=== PATIENT | male | born 1945 | race Caucasian/White ===

== ENCOUNTER 2018-01-11 06:24 | Inpatient (IN) | payer OTHER ==
[2018-01-06 14:57] VITALS: BMI 25.8
[2018-01-11] MEDS ORDERED: TAMSULOSIN HCL 0.4 MG CAP.ER.24H (FP) ONE (07:06)
[2018-01-11] MEDS ORDERED: DEXAMETHASONE SOD PHOSPHATE/PF 10 MG/ML SDV ONE (07:42)
[2018-01-11] MEDS ORDERED: BUPIVACAINE HCL/PF (5 MG/ML) 30 ML VIAL IJ ONE (07:42)
--- NOTE | 2018-01-11 08:25 | HP ---
DATE OF ADMISSION: 01/11/2018 BRIEF HISTORY: This is a 72-year-old gentleman I met on November 29 of this year. [facility] this H & P is outside of 30 days. Therefore patient is reevaluated and redictated. Please refer to my original H & P for details. This is a 72-year-old gentleman with a chronically incarcerated ventral hernia. It is causing discomfort. He wished to have this repaired. PAST MEDICAL HISTORY: Peptic ulcer disease, pulmonary problems, heart disease, hypertension, hypercholesterolemia, history of stroke and diabetes. PAST SURGICAL HISTORY: No abdominal surgeries. ALLERGIES: TETRACYCLINE. MEDICATIONS: Combivent, Advair, Toprolol, Zantac, Diovan, Januvia, Prevacid, Antara, Flomax, lorazepam. SOCIAL HISTORY: Does not smoke. Drinks socially. PHYSICAL EXAMINATION:Abdomen: Soft, nontender, nondistended. Midline diastasis. Chronically incarcerated complex ventral hernia. IMPRESSION: Chronically incarcerated complex ventral hernia. PLAN: Patient is having discomfort, symptomatic. Therefore it is being repaired. Plan for a retrorectus repair, possible component separation as needed. DAVID SONG M.D. [id number] cc: Devonte Kelly MD MTDD
[2018-01-11] MEDS ORDERED: MIDAZOLAM HCL 2 MG/2 ML SINGLE DOSE VIAL ONE (08:32)
[2018-01-11] MEDS ORDERED: HYDROmorphone HCL/PF 1 MG/ML VIAL (FOR PYXIS CHARGING ONLY) ONE (09:16)
[2018-01-11] MEDS ORDERED: ROCURONIUM BROMIDE 50 MG/5 ML VIAL ONE (09:16)
[2018-01-11] MEDS ORDERED: LIDOCAINE HCL 2% 100 MG/5 ML DISP.SYRIN ONE (09:22)
[2018-01-11] MEDS ORDERED: DESFLURANE GAS 240 ML BOTTLE IH ONE (09:27)
[2018-01-11] MEDS ORDERED: ceFAZolin SODIUM 1 GM VIAL ONE (09:30)
[2018-01-11] MEDS ORDERED: ONDANSETRON 4 MG/2 ML VIAL ONE ×2 (09:33→11:15)
[2018-01-11] MEDS ORDERED: DEXAMETHASONE SOD PHOSPHATE 4 MG/1 ML VIAL ONE (09:33)
[2018-01-11] MEDS ORDERED: PHENYLEPHRINE HCL 10 MG/1 ML SINGLE DOSE VIAL ONE (09:36)
[2018-01-11] MEDS ORDERED: PROPOFOL 20 ML ONE (10:01)
[2018-01-11] MEDS ORDERED: NEOSTIGMINE METHYLSULFATE 0.5 MG/ML - 10 ML MDV ONE (10:11)
[2018-01-11] MEDS ORDERED: GLYCOPYRROLATE 0.2 MG/1 ML VIAL ONE (10:12)
[2018-01-11] MEDS ORDERED: NALOXONE HCL 0.4 MG/ML VIAL ONE (10:37)
[2018-01-11] MEDS ORDERED: ONDANSETRON 4 MG/2 ML VIAL IVPUSH PRN ×2 (11:19→11:34)
[2018-01-11] MEDS ORDERED: oxyCODONE HCL 5 MG TABLET PO PRN ×2 (11:19→11:34)
[2018-01-11] MEDS ORDERED: LACTATED RINGERS SOLUTION 1,000 ML IV SCH (11:30)
[2018-01-11] MEDS ORDERED: ACETAMINOPHEN 325 MG TABLET (FP) PO PRN (11:34)
[2018-01-11] MEDS ORDERED: morphine CARPU-JECT 4 MG/1 ML DISP.SYRIN IVPB PRN (11:34)
[2018-01-11] MEDS ORDERED: SODIUM CHLORIDE 1,000 ML IV SCH (11:45)
--- NOTE | 2018-01-11 12:03 | OP ---
DATE OF OPERATION: 01/11/2018 PREOPERATIVE DIAGNOSIS: Chronically incarcerated complex ventral hernia. POSTOPERATIVE DIAGNOSIS: Chronically incarcerated complex ventral hernia. PROCEDURE: Open bilateral component separation, repair of complex incarcerated ventral hernia with mesh. SURGEON: Mega Lindsey MD CAUSTIC ROOM ATTENDANT: Curtis Pastor MD ANESTHESIA: Cecilia Cline MD (general). ESTIMATED BLOOD LOSS: Minimal. SPECIMEN: None. INDICATION FOR PROCEDURE: This is a 72-year-old gentleman with a chronically incarcerated ventral hernia. It is causing him discomfort. He wished to have this repaired. He has had this for many, many years. Patient identified and appropriately positioned on the operating room table. After placement of general anesthesia the abdomen was prepped and draped in the usual sterile fashion with ChloraPrep. A midline incision was made and deepened through subcutaneous tissue. The hernia dissected free from the subcutaneous tissue down to the level of the fascia. It was then circumferentially isolated. The hernia sac was then opened. The sac contained omentum and preperitoneal fat. This was reduced back into the peritoneal cavity. Next the fascia of the rectus muscle on the right was divided. The posterior sheath from the posterior rectus muscle with blunt dissection. The dissection ensued out laterally to the perforating vessels at this level. The transversus was sharply divided from the rectus and oblique junction. This was taken approximately 4 to 5 inches above and below the actual defect. Once the myofascial separation on the patient's right side was complete the operative field examined and noted to be hemostatic. There were no breaks in the transversus on the right side. A similar approach was then used on the left side. On the left side the posterior rectus space was entered by dividing the posterior rectus sheath sharply. The muscle was then off the sheath with blunt dissection and again at the level of the perforating vessels. The transversus was thus sharply divided from the rectus and obliques and again this was carried approximately 5 inches above and below the actual defect. The 2 sides were then brought together in the superior and inferior midline and the posterior transversus layer was then reapproximated with a running locking 3-0 Maxon suture. The posterior rectus space identified, examined and noted to be hemostatic on both sides. A large 15 x 15 ProGrip along with a 10 x 12 YONG Bio was sewn together with interrupted 3-0 Vicryl sutures. The 2 pieces of mesh were placed into the retrorectus space with the YONG on the transversus side and the ProGrip on the rectus side. The mesh was fanned out into this large space that was created and then anchored with the AbsorbaTack. The mesh itself was irrigated with saline. The operative field noted to be hemostatic. The preliminary sponge and needle counts at this point were correct as well. Next the midline fascia was then reapproximated with interrupted 0 PDS suture, the subcutaneous space irrigated and the skin closed with lino. At the conclusion of this case sponge and needle counts were correct. ATTESTATION: Brief operative note handwritten on the preprinted form. [facility] queried prior to giving narcotics. It will be done electronically. Radha PATTERSON [id number] cc: Devonte Kelly MD
[2018-01-11] MEDS ORDERED: PATIENT'S OWN MEDICATION (NON-FORMULARY) (Ipratropium/Albuterol Sulfate [Combivent Respima IH SCH (14:00)
[2018-01-11] MEDS ORDERED: INSULIN SLIDING SCALE (NOVOLOG) 1 VIAL SQ SCH (16:30)
[2018-01-11] MEDS ORDERED: ZOLPIDEM TARTRATE 5 MG TABLET PO PRN (16:38)
[2018-01-11] MEDS ORDERED: morphine SULFATE 4 MG/ML VIAL IVPB PRN (17:46)
[2018-01-11] MEDS: oxyCODONE HCL 5 MG TABLET PO PRN (18:39)
[2018-01-11] MEDS ORDERED: FENOFIBRATE MICRONIZED 90 MG PO SCH (22:00)
[2018-01-11] MEDS ORDERED: TAMSULOSIN HCL 0.4 MG CAP.ER.24H (FP) PO SCH (22:00)
[2018-01-12] MEDS: oxyCODONE HCL 5 MG TABLET PO PRN ×2 (05:20→10:28)
[2018-01-12 06:14] VITALS: BP 143/58; PULSE 83; TEMP 98
[2018-01-12] MEDS ORDERED: ENOXAPARIN NA (PORCINE) 40 MG/0.4 ML DISP.SYRIN SQ SCH (10:00)
[2018-01-12] MEDS ORDERED: PATIENT'S OWN MEDICATION (NON-FORMULARY) (Valsartan/Hydrochlorothiazide [Diovan Hct 160-12 PO SCH (10:00)
[2018-01-12] MEDS ORDERED: ASPIRIN 81 MG CHEWABLE TABLETS PO SCH (10:00)
[2018-01-12] MEDS ORDERED: amLODIPine BESYLATE 10 MG TABLET (FP) PO SCH (10:00)
[2018-01-12] MEDS ORDERED: PANTOPRAZOLE SODIUM 40 MG VIAL IVPUSH SCH (10:00)
--- NOTE | 2018-01-12 10:42 | DS ---
DATE OF ADMISSION: 01/11/2018 DATE OF DISCHARGE: 01/12/2018 ADMITTING DIAGNOSIS: Complex abdominal wall hernia. DISCHARGE DIAGNOSIS: Complex abdominal wall hernia. BRIEF HISTORY: This is a 72-year-old male who presented to [facility] for surgical management of a ventral hernia. Please see Dr. Mega Lindsey's operative report for details but essentially underwent repair with mesh utilizing component separation and myofascial release. His postoperative course was uneventful. He is being discharged home today, January 12. He is tolerating a diet. He is ambulating. He is voiding. He will go home with a new prescription for Percocet, which he will take as needed for pain. He will resume his home medications as well. He will follow up with Dr. Lindsey in approximately 2 weeks' time to be evaluated for staple removal and for his postoperative check. He is okay to shower, okay to drive. He will not lift anything more than 20 pounds. He will likely require 2 weeks off from work, and he will be on a regular diet. DO JOCE GROVE/[id number]
[2018-01-12] MEDS ORDERED: VALSARTAN 160 MG TABLET (UD) PO SCH (11:00)
[2018-01-12] MEDS ORDERED: HYDROCHLOROTHIAZIDE 12.5 MG CAPSULE (FP) PO SCH (11:00)
--- NOTE | 2018-01-12 11:10 | PN ---
Progress Note, Physician Chief Complaint: s/p ventral hernia repair. History of Present Illness: general anesthesia post op day one, bilateral TAP block - Objective Vital Signs: Vital Signs Temperature 98.0 F 01/12/18 06:00 Pulse Rate 83 01/12/18 06:00 Respiratory Rate 18 01/12/18 06:00 Blood Pressure 143/58 01/12/18 06:00 O2 Sat by Pulse Oximetry (%) 96 01/12/18 06:00 Constitutional: Yes: Well Nourished Cardiovascular: Yes: WNL Respiratory: Yes: WNL Gastrointestinal: Yes: WNL Assessment/Plan Patient doing well, no complaints, dept of anesthesiology will sign off care at this time
== END 2018-01-12 11:00 | disposition home or self-care (01) | DRG 355 ==
LOC: FASU 06:24 → FM/S 11:34
PROVIDERS: ADMIT Surgery; ATTEND Surgery
PROC: 0WUF0JZ Supplement Abdominal Wall with Synthetic Substitute, Open Approach (ICD-10-PCS; principal; 2018-01-11 09:34)
DX: K43.6 Other and unspecified ventral hernia with obstruction, without gangrene (principal); E11.9 Type 2 diabetes mellitus without complications; Z86.73 Personal history of transient ischemic attack (TIA), and cerebral infarction without residual deficits; I10 Essential (primary) hypertension; E78.00 Pure hypercholesterolemia, unspecified; Z87.11 Personal history of peptic ulcer disease; I25.10 Atherosclerotic heart disease of native coronary artery without angina pectoris; Z79.84 Long term (current) use of oral hypoglycemic drugs
CPT/HCPCS: 82962; 94760